=== PATIENT | female | born 1950 | race Caucasian/White ===

== ENCOUNTER 2022-02-01 06:49 | Emergency (ER) | payer BC ==
[~2022-02-01] VITALS: Ht 157.5 cm; Wt 91.0 kg
[2022-02-01 07:28] VITALS: BP 152/73
== END 2022-02-01 12:28 | disposition left against medical advice (07) ==
LOC: ER 06:49
DX: H57.10 Ocular pain, unspecified eye (principal); Z53.21 Procedure and treatment not carried out due to patient leaving prior to being seen by health care provider